=== PATIENT | male | born 1945 | race Caucasian/White ===

== ENCOUNTER → 2017-09-09 | Outpatient (CLI) | payer MEDICARE, BC ==
[~2017-09-09] MED LIST: AMPICILLIN TRI250 MG PO; BAYER CHEWABLE81 MG PO; BIAXIN 250MG T250 MG PO; CARDIZEM CD180 MG PO; DIGOXIN250 MCG PO; FERREX 150 PLU1 EAC1 PO; LASIX 20 MG TAB20 MG PO; NIACIN ER500 MG PO; PRESERVISION A1 EAC2 PO; PROTONIX40 M1 PO; XALATAN2.5 ML OPHTHALMIC; ZYVOX600 MG PO
== END ==
LOC: M.LAB 03:43
DX: Z01.812 Encounter for preprocedural laboratory examination (principal); I50.30 Unspecified diastolic (congestive) heart failure; I48.91 Unspecified atrial fibrillation